=== PATIENT | female | born 1955 | race Caucasian/White ===

== ENCOUNTER 2017-12-09 13:41 | Emergency (ER) | payer OTHER ==
[~2017-12-09] VITALS: Ht 162.5 cm; Wt 75.3 kg
[~2017-12-09 13:41] MED LIST: NKHM; VOLTAREN75 MG PO
[2017-12-09] MEDS ORDERED: JANUVIA100 MG PO (13:54)
[2017-12-09] MEDS ORDERED: METFORMIN HCL1000 MG PO (13:55)
[2017-12-09] MEDS ORDERED: FENOFIBRATE145 M1 PO (13:55)
[2017-12-09] MEDS ORDERED: LISINOPRIL5 MG PO (13:55)
[2017-12-09] MEDS ORDERED: GLIMEPIRIDE4 M1 PO (13:56)
[2017-12-09] MEDS ORDERED: LANSOPRAZOLE30 MG PO (13:56)
[2017-12-09] MEDS ORDERED: AMITRIPTYLINE H75 MG PO (13:57)
== END 2017-12-09 15:04 | disposition home or self-care (01) ==
LOC: ED 13:41
DX: B34.9 Viral infection, unspecified (principal); Z79.899 Other long term (current) drug therapy

== ENCOUNTER 2018-04-15 11:34 | Emergency (ER) | payer OTHER ==
[~2018-04-15] VITALS: Ht 162.5 cm; Wt 76.2 kg
[~2018-04-15 11:34] MED LIST changes: +AMITRIPTYLINE H75 MG PO; +FENOFIBRATE145 M1 PO; +GLIMEPIRIDE4 M1 PO; +JANUVIA100 MG PO; +LANSOPRAZOLE30 MG PO; +LISINOPRIL5 MG PO; +METFORMIN HCL1000 MG PO
[2018-04-15] MEDS ORDERED: Motrin,Rufen800 MG PO (12:57)
== END 2018-04-15 13:00 | disposition home or self-care (01) ==
LOC: ED 11:34
DX: S46.912A Strain of unspecified muscle, fascia and tendon at shoulder and upper arm level, left arm, initial encounter (principal); F17.200 Nicotine dependence, unspecified, uncomplicated; Z79.84 Long term (current) use of oral hypoglycemic drugs; Z79.899 Other long term (current) drug therapy; W17.3XXA Fall into empty swimming pool, initial encounter; Y93.H3 Activity, building and construction; Y92.89 Other specified places as the place of occurrence of the external cause; Y99.8 Other external cause status

== ENCOUNTER 2018-12-09 16:45 | Emergency (ER) | payer OTHER ==
[~2018-12-09] VITALS: Ht 162.5 cm; Wt 77.1 kg
[~2018-12-09 16:45] MED LIST changes: +Motrin,Rufen800 MG PO
== END 2018-12-09 18:15 | disposition home or self-care (01) ==
LOC: ED 16:45
DX: S80.12XA Contusion of left lower leg, initial encounter (principal); M25.562 Pain in left knee; M79.652 Pain in left thigh; Z79.899 Other long term (current) drug therapy; X58.XXXA Exposure to other specified factors, initial encounter; Y93.89 Activity, other specified; Y92.89 Other specified places as the place of occurrence of the external cause; Y99.8 Other external cause status

== ENCOUNTER 2024-04-15 12:42 | Emergency (ER) | payer OTHER ==
[~2024-04-15] VITALS: Wt 63.5 kg
[2024-04-15] MEDS ORDERED: IOHEXOL 300 MG/ML 100 ML VIAL IV ONE (13:00)
[2024-04-15] MEDS ORDERED: Clindamycin Phosphate 50 ML IV ONE (13:00)
[2024-04-15 13:16] LABS: BASO % 0.3 % (0.0-1.0); EOS # 0.1 10*3/uL (0.0-0.4); EOS % 1.9 % (1.0-4.0); LYMPH # 1.5 10*3/uL (1.3-4.4); LYMPH % 20.3 % (27.0-41.0); MEAN CELL VOLUME 86.2 fl (81.0-99.0); MEAN CORPUSCULAR HGB 28.2 pg (27.0-31.0); MEAN CORPUSCULAR HGB CONC 32.8 g/dl (33.0-37.0); MEAN PLATELET VOLUME 9.2 fl (9.6-12.3); MONO # 0.4 10*3/uL (0.1-1.0); MONO % 5.8 % (3.0-9.0); NEUT # 5.4 10*3/uL (2.3-7.9); PLATELET COUNT AUTOMATED 315 10*3/uL (130-400); RED BLOOD COUNT 4.64 10*6/uL (4.10-5.10); RED CELL DISTRI WIDTH 12.5 % (0-14.5); WHITE BLOOD COUNT 7.5 10*3/uL (4.8-10.8)
[2024-04-15] MEDS ORDERED: ACETAMINOPHEN 325 MG TAB PO ONE (13:35)
== END 2024-04-15 17:37 | disposition home or self-care (01) ==
LOC: ED 12:42
PROVIDERS: Emergency Medicine
DX: S33.5XXA Sprain of ligaments of lumbar spine, initial encounter (principal); S70.01XA Contusion of right hip, initial encounter; K21.9 Gastro-esophageal reflux disease without esophagitis; E11.9 Type 2 diabetes mellitus without complications; Z98.890 Other specified postprocedural states; W19.XXXA Unspecified fall, initial encounter; Y93.89 Activity, other specified; Y92.009 Unspecified place in unspecified non-institutional (private) residence as the place of occurrence of the external cause; Y99.8 Other external cause status